=== PATIENT | female | born 1975 | race Two or more races ===

== ENCOUNTER 2025-01-01 04:00 | Emergency (ER) | payer MEDICAID, OTHER ==
[~2025-01-01] VITALS: Ht 154.9 cm; Wt 83.0 kg
[2025-01-01 04:33] LABS: Basophils # (auto) 0.1 10 ^3/uL (0-0.2); Basophils % (auto) 1.3 % (0.0-2.0); Eosinophils # (auto) 0.2 10 ^3/uL (0-0.8); Eosinophils % (auto) 2.9 % (0.0-7.0); Hematocrit 42.5 % (36.0-46.0); Hemoglobin 14.7 g/dL (12.2-16.2); Lymphocytes # (auto) 2.7 10 ^3/uL (0.4-5.4); Lymphocytes % (auto) 31.9 % (10.0-50.0); Mean Corpuscular Hemoglobin 30.8 pg (28.0-32.0); Mean Corpuscular Hgb Conc. 34.6 g/dL (32.0-36.0); Mean Corpuscular Volume 89.1 fL (80.0-100.0); Monocytes # (auto) 0.7 10 ^3/uL (0-1.3); Neutrophils # (auto) 4.7 10 ^3/uL (1.6-8.6); Neutrophils % (auto) 55.9 % (37.0-80.0); Nucleated Red Blood Cells % 0.1 %; Platelet Count (auto) 235 10^3/uL (140-450); Red Blood Cells 4.77 10^6/uL (4.0-5.20); Red Cell Distribution Width 14.9 % (11.8-14.3); White Blood Cell 8.3 10^3/uL (4.4-10.8)
[2025-01-01 04:42] LABS: Chloride 106 mmol/L (98-107); Potassium 3.8 mmol/L (3.5-5.1); Sodium 141 mmol/L (136-145)
[2025-01-01 04:43] LABS: Anion Gap 11 (5-15); Carbon Dioxide 24 mmol/L (20-31)
[2025-01-01 04:44] LABS: Calcium 9.2 mg/dL (8.7-10.4)
[2025-01-01 04:48] LABS: BUN/Creatinine Ratio 17.5 (10.0-20.0); Blood Urea Nitrogen 11 mg/dL (9-23)
--- NOTE | 2025-01-01 04:55 | DVH ---
CHEST RADIOGRAPH Indication: cp Technique: Single frontal view of the chest was obtained COMPARISON: None FINDINGS: Lines and Tubes: None Lungs: Mild increased interstitial prominence Pleura: No effusion. No pneumothorax. Cardiomediastinal contours: Unremarkable Bones: Unremarkable IMPRESSION: Pulmonary vascular congestion or viral pneumonia.
[2025-01-01 05:03] LABS: Urine Bacteria None Seen /hpf (None Seen)
[2025-01-01 05:04] LABS: Glucose 110 mg/dL (74-106)
[2025-01-01] MEDS ORDERED: HYDR50TA32 PO (05:09)
--- NOTE | 2025-01-01 05:10 | ED.PDOC ---
History of Present Illness HPI Comments 49-year-old female with no significant past medical history brought in by family complaining of chest tightness that woke her up at around 2:00 a.m., associated with numbness in her left upper extremity and nausea. Patient states the pain has now resolved. She denies any vomiting, diaphoresis, edema or shortness of breath. Patient states she has had similar symptoms in the past and had a cardiac workup in August of 2024 including a treadmill test and echocardiogram. She was told the results were normal. Chief Complaint: Chest Pain Time Seen by MD: 04:09 Allergies: Coded Allergies: NO KNOWN ALLERGIES (Unverified , 01/01/25) Home Meds Active Scripts Hydroxyzine HCl (Hydroxyzine Hydrochloride) 50 Mg Tab, 50 MG PO Q8HP PRN, #30 TAB Prov:VERNON MEREDITH MD 01/01/25 Mode of Arrival: Ambulatory Past Medical History PAST MEDICAL HISTORY: Denies Surgical History: Hysterectomy SAP BPC DEVELOPER History: No Pertinent SAP BPC DEVELOPER History Family History Family History: Reviewed,noncontributory to illness Social History Smoker: Non-Smoker Alcohol: Denies ETOH Use Drugs: Denies Drug Use Lives In: Home All Other Systems: Reviewed and Negative (Comprehensive systems review obtained and negative except for what is stated in the HPI.) Physical Exam General Appearance: No Apparent Distress, Obese HEENT: Other (Pupils and face symmetric. Moist mucous membranes.) Neck: Full Range of Motion, Normal Inspection Respiratory: Lungs Clear, No Accessory Muscle Use, No Respiratory Distress, Normal Breath Sounds Cardiovascular: No Edema, No JVD, Regular Rate/Rhythm Breast Exam: Deferred Gastrointestinal: Non Tender, Soft Genitalia: Deferred Pelvic: Deferred Rectal: Deferred Extremities: Normal inspection, Normal range of motion, Non-tender, No pedal edema Neurologic: Alert (Oriented x4), Normal Affect, Other (Ambulatory. Appears anxious. Thirty) Cerebellar Function: NOT DONE Reflexes: NOT DONE Skin: Dry, Normal Color, Warm Lymphatic: NOT DONE Was a procedure done? Was a procedure done?: No EKG EKG : Comments Sinus rhythm, rate 74, normal intervals, normal axis, normal QRS, no ST/T c hanges. Differential Dx Considerations may include: Anxiety, chest wall pain, neuropathic pain, ACS, NV, among others X-Ray, Labs, Meds, VS Vital Signs Date Time Temp Pulse Resp B/P (MAP) Pulse Ox O2 Delivery O2 Flow Rate FiO2 01/01/25 05:31 98.3 76 18 131/72 (91) 98 98.3 01/01/25 05:05 77 01/01/25 04:10 98.3 77 16 152/95 (114) 97 98.3 01/01/25 04:05 74 Lab Test 01/01/25 05:08 01/01/25 04:10 Range/Units Troponin I High Sensitivity Pending < 3 L </=34 ng/L White Blood Count 8.3 4.4-10.8 10^3/uL Red Blood Count 4.77 4.0-5.20 10^6/uL Hemoglobin 14.7 12.2-16.2 g/dL Hematocrit 42.5 36.0-46.0 % Mean Corpuscular Volume 89.1 80.0-100.0 fL Mean Corpuscular Hemoglobin 30.8 28.0-32.0 pg Mean Corpuscular Hemoglobin Concent 34.6 32.0-36.0 g/dL Red Cell Distribution Width 14.9 H 11.8-14.3 % Platelet Count 235 140-450 10^3/uL Mean Platelet Volume 7.1 6.9-10.8 fL Neutrophils (%) (Auto) 55.9 37.0-80.0 % Lymphocytes (%) (Auto) 31.9 10.0-50.0 % Monocytes (%) (Auto) 8.0 0.0-12.0 % Eosinophils (%) (Auto) 2.9 0.0-7.0 % Basophils (%) (Auto) 1.3 0.0-2.0 % Neutrophils # (Auto) 4.7 1.6-8.6 10 ^3/uL Lymphocytes # (Auto) 2.7 0.4-5.4 10 ^3/uL Monocytes # (Auto) 0.7 0-1.3 10 ^3/uL Eosinophils # (Auto) 0.2 0-0.8 10 ^3/uL Basophils # (Auto) 0.1 0-0.2 10 ^3/uL Nucleated Red Blood Cells 0.1 % Urine Color Light-yellow Yellow Urine Clarity Clear Clear Urine pH 5.5 5.0-9.0 Urine Specific [place] 1.022 1.001-1.035 Urine Protein Negative Negative Urine Ketones Negative Negative Urine Blood 1+ H Negative /uL Urine Nitrite Negative Negative Urine Bilirubin Negative Negative Urine Urobilinogen Normal Negative mg/dL Urine Leukocyte Esterase Negative Negative /uL Urine RBC 2 0 - 4 /hpf Urine Microscopic WBC 3 0-5 /HPF Urine Squamous Epithelial Cells Few <5 /hpf Urine Bacteria None seen None Seen /hpf Urine Mucus Few None Seen Urine Glucose Normal Normal mg/dL Urine Test Negative Negative Sodium Level 141 136-145 mmol/L Potassium Level 3.8 3.5-5.1 mmol/L Chloride Level 106 98-107 mmol/L Carbon Dioxide Level 24 20-31 mmol/L Anion Gap 11 5-15 Blood Urea Nitrogen 11 9-23 mg/dL Creatinine 0.63 0.550-1.02 mg/dL Glomerular Filtration Rate Calc 107 >90 mL/min BUN/Creatinine Ratio 17.5 10.0-20.0 Serum Glucose 110 H 74-106 mg/dL Calcium Level 9.2 8.7-10.4 mg/dL B-Type Natriuretic Peptide 6.33 0-100 pg/mL Current Medications Medications (Trade) Dose Ordered Sig/Leah Route Start Time Stop Time Status Last Admin Lorazepam (Ativan Tablet) 0.5 mg ONCE ONCE PO 01/01/25 05:15 01/01/25 05:16 DC 01/01/25 05:35 PROCEDURE(s): CXRP - CHEST PORTABLE REASON: cp ORDER NUMBER(s): [id number], ACCESSION NUMBER(s): [id number] CHEST RADIOGRAPH Indication: cp Technique: Single frontal view of the chest was obtained COMPARISON: None FINDINGS: Lines and Tubes: None Lungs: Mild increased interstitial prominence Pleura: No effusion. No pneumothorax. Cardiomediastinal contours: Unremarkable Bones: Unremarkable IMPRESSION: Pulmonary vascular congestion or viral pneumonia. X-Ray, Labs, Meds, VS Comment 49-year-old female with no significant past medical history and recent negative cardiac workup in August of 2024 complaining of chest pain that resolved prior to arrival Vitals remarkable for BP 152/95 Exam remarkable for anxious appearance Rhythm strip independently interpreted by me: Sinus rhythm, rate 74, no ectopy. Chest x-ray IMPRESSION: Pulmonary vascular congestion or viral pneumonia. CBC, basic metabolic panel, BNP and troponin unremarkable Patient treated with the following in the ED: Ativan 0.5 mg p.o. On re-evaluation, patient states she stress pain-free. Vitals were stable. Hospitalization was considered, however patient was chest pain-free on re-evalua tion and ED cardiac workup was unremarkable. Patient had a recent cardiology evaluation which was negative. Denies any fever, cough or infectious type symptoms. BNP is unremarkable. Radiologist read of chest x-ray is inconsistent with the patient's clinical presentation. Doubt pneumonia or vascular congestion. Patient appears stable for discharge with close outpatient follow- up with her primary physician. Rx hydroxyzine Time of 1ST Reevaluation: 06:00 Reevaluation 1ST: Improved Patient Education/Counseling: Diagnosis, Treatment, Need For Follow Up Family Education/Counseling: No Family Present SEPSIS Sepsis Screen Date sepsis recognized/suspect: Jan 01, 2025 Time Sepsis recognized/suspect: 409 Recent Procedure: No On Antibiotic Therapy: No Respiratory Rate >20: No Heart Rate >90: No Temp<36 C (96.8 F) or >38.3 C: No SBP <90 or MAP <65 mmHG: No New Acute Mental Status Change: No Is the patient on CPAP, BIPAP,: No Physician Orders Electrocardigram (01/01/25 04:03) Electrocardigram (01/01/25 05:03) Electrocardigram (01/01/25 07:03) Troponin-I Hs (01/01/25 05:03) Troponin-I Hs (01/01/25 07:03) Chest Portable (01/01/25 04:09) Vital Signs Date Time Temp Pulse Resp B/P (MAP) Pulse Ox O2 Delivery O2 Flow Rate FiO2 01/01/25 05:31 98.3 76 18 131/72 (91) 98 98.3 01/01/25 05:05 77 01/01/25 04:10 98.3 77 16 152/95 (114) 97 98.3 01/01/25 04:05 74 Laboratory Tests Test 01/01/25 04:10 White Blood Count 8.3 10^3/uL (4.4-10.8) Medications Medications Dose Ordered Sig/Leah Route Start Time Stop Time Status Last Admin Dose Admin Lorazepam 0.5 mg ONCE ONCE PO 01/01/25 05:15 01/01/25 05:16 DC 01/01/25 05:35 Departure 1 Departure Time of Disposition: 06:00 Impression: Primary Impression: Chest pain with low risk for cardiac etiology Additional Impression: Anxiety Disposition: 01 HOME / SELF CARE / HOMELESS Condition: Stable Additional Instructions: Your blood tests, including screening test for heart attack and heart failure, were unremarkable. I have prescribed medication for anxiety. Follow-up with your primary doctor in 1-2 days. e-Prescriptions Hydroxyzine HCl (Hydroxyzine Hydrochloride) 50 Mg Tab 50 MG PO Q8HP PRN, #30 TAB Prov: VERNON MEREDITH MD 01/01/25 Discharged With: Spouse Critical Care Note Critical Care Time?: No Stability Stability form required: No Heart Score Heart Score: Heart Score Response (Comments) Value History Slightly Suspicious 0 EKG Normal 0 Age 45-64 1 Risk Factors No known risk factors 0 Troponin Normal limit 0 Total 1 VERNON MEREDITH MD Jan 01, 2025 05:10
[2025-01-01 05:31] VITALS: BP 131/72; PULSE 76; RESP 18; TEMP 98.3; O2SAT 98
[2025-01-01] MEDS: LORazepam 0.5 MG TAB PO ONE (05:35)
[2025-01-01 05:40] LABS: Urine Blood 1+ /uL (Negative); Urine Clarity Clear (Clear); Urine Color Light-Yellow (Yellow); Urine Mucus FEW (None Seen); Urine Protein, UAD Negative (Negative); Urine Specific Gravity 1.022 (1.001-1.035); Urine Squamous Epithelial Cell FEW /hpf (<5); Urine Urobilinogen Normal (Negative); Urine WBC 3 /HPF (0-5); Urine pH 5.5 (5.0-9.0)
--- NOTE | 2025-01-03 08:52 | ECG ---
[facility] Test Date: 2025-01-01 Test Time: 05:10:19 Pat Name: JP CHACON Department: ED Room: Gender: F Regional Marketing Manager: : 1975 Requested By: EMERGENCY EMERGENCY Order Number: [id number] Reading MD: Johnnie Pedraza Measurements Intervals [place] Rate: 77 P: 32 VA: 157 QRS: 42 QRSD: 91 T: 44 QT: 391 QTc: 443 Interpretive Statements Sinus rhythm Electronically Signed On 01-05-2025 9:40:54 PDT by Johnnie Pedraza Please click the below link to view image of tracing.
== END 2025-01-01 05:55 | disposition home or self-care (01) ==
LOC: ER 04:00
DX: R07.89 Other chest pain (principal); F41.9 Anxiety disorder, unspecified; Z90.710 Acquired absence of both cervix and uterus; Z79.899 Other long term (current) drug therapy
CPT/HCPCS: 36415; 71045; 80048; 81001; 81025; 83880; 84484; 85025; 93005

== ENCOUNTER 2025-03-02 12:59 | Emergency (ER) | payer MEDICAID ==
[~2025-03-02] VITALS: Ht 154.9 cm; Wt 84.9 kg
[~2025-03-02 12:59] MED LIST: HYDR50TA32 PO
--- NOTE | 2025-03-02 13:28 | ED.PDOC ---
History of Present Illness(SKN HPI Comments A 49 YEAR OLD FEMALE PRESENTS TO THE ED WITH COMPLAINT OF BEE STING OF RIGHT INNER THIGH. PATIENT STATES SHE WAS STUNG BY A BEE ON HER RIGHT INNER THIGH YESTERDAY AND SHE IS NOW EXPERIENCING REDNESS, SWELLING, AND PAIN TO THE AFFECTED AREA A RESULT. PATIENT DENIES FEVER, CHILLS, SHORTNESS OF BREATH, CHEST PAIN, ABDOMINAL PAIN, NAUSEA, VOMITING, HEADACHE, OR OTHER COMPLAINTS. NO OTHER SYMPTOMS OR MODIFYING FACTORS AT THIS TIME. PATIENT IS ALERT, ORIENTED X 4, AND HAS STEADY GAIT. Chief Complaint: Insect Bite Time Seen by MD: 13:03 History of Present Illness: Nurses Notes, Medications, Allergies Allergies: Coded Allergies: NO KNOWN ALLERGIES (Unverified , 01/01/25) Home Meds Active Scripts Hydroxyzine HCl (Hydroxyzine Hydrochloride) 50 Mg Tab, 50 MG PO Q8HP PRN, #30 TAB Prov:VERNON MEREDITH MD 01/01/25 Information Source: Patient Mode of Arrival: Ambulatory Severity: Moderate Timing: Days Duration: Since onset, Days Prehospital treatment: None Location: Extremities (RIGHT INNER THIGH ) Mechanism: Insect Occurence: Outdoors Object: None Condition of Object: None Retained Foreign Body: No Wound Type: Other (BEE STING) Immunization Status of Animal: NA Tetanus: Unknown History of: None Associated Signs and Symptoms: Redness, Swelling, Pain Past Medical History PAST MEDICAL HISTORY: Denies Surgical History: Hysterectomy TESTING LEAD History: No Pertinent TESTING LEAD History Family History Family History: Reviewed,noncontributory to illness Social History Smoker: Non-Smoker Alcohol: Denies ETOH Use Drugs: Denies Drug Use Lives In: Home Constitutional: denies: chills, diaphoresis, fatigue, fever, malaise, sweats, weakness, others EENTM: denies: blurred vision, double vision, ear bleeding, ear discharge, ear drainage, ear pain, ear ringing, eye pain, eye redness, hearing loss, mouth pain, mouth swelling, nasal discharge, nose bleeding, nose congestion, nose pain, photophobia, tearing, throat pain, throat swelling, voice changes, others Respiratory: denies: cough, hemoptysis, orthopnea, SOB at rest, shortness of breath, SOB with excertion, stridor, wheezing, others Cardiovascular: denies: chest pain, dizzy spells, diaphoresis, Dyspnea on exertion, edema, irregular heart beat, left arm pain, lightheadedness, palpitations, PND, syncope, others Gastrointestinal: denies: abdomen distended, abdominal pain, blood streaked bowels, constipated, diarrhea, dysphagia, difficulty swallowing, hematemesis, melena, nausea, poor appetite, poor fluid intake, rectal bleeding, rectal pain, vomiting, others Genitourinary: denies: abnormal vagina bleeding, burning, dyspareunia, dysuria, flank pain, frequency, hematuria, incontinence, pain, , vagina d ischarge, urgency, others Neurological: denies: dizziness, fainting, headache, left sided numbness, left sided weakness, numbness, paresthesia, pre-existing deficit, right sided numbness, right sided weakness, seizure, speech problems, tingling, tremors, weakness, others Musculoskeletal: denies: back pain, gout, joint pain, joint swelling, muscle pain, muscle stiffness, neck pain, others Integumetry: reports: rash, others (BEE STING OF RIGHT INNER THIGH); denies: bruises, change in color, change in hair/nails, dryness, laceration, lesions, lumps, wounds Allergic/Immunocompromised: reports: Hives, Itching; denies: Difficulty Healing, Frequent Infections, others Hematologic/Lymphatic: denies: anemia, blood clots, easy bleeding, easy bruising, swollen glands, others Endocrine: denies: excessive hunger, excessive sweating, excessive thirst, excessive urination, flushing, intolerance to cold, intolerance to heat, unexplained weight gain, unexplained weight loss, others Psychiatric: denies: anxiety, bipolar disorder, depression, hopeless, panic disorder, schizophrenia, sleepless, suicidal, others All Other Systems: Reviewed and Negative Physical Exam General Appearance: Obese HEENT: Normal ENT Inspection, PERRL/EOMI, Pharynx Normal, TMs Normal Neck: Full Range of Motion, Non-Tender, Normal, Normal Inspection Respiratory: Chest Non-Tender, Lungs Clear, No Accessory Muscle Use, No Respiratory Distress, Normal Breath Sounds Cardiovascular: No Edema, No JVD, No Murmur, No Gallop, Normal Peripheral Pulses, Regular Rate/Rhythm Breast Exam: Deferred Gastrointestinal: No Organomegaly, Non Tender, No Pulsatile Mass, Normal Bowel Sounds, Soft Genitalia: Deferred Pelvic: Deferred Rectal: Deferred Extremities: No calf tenderness, Normal capillary refill, Normal inspection, Normal range of motion, No pedal edema, Tender (REDNESS AND MILD SWELLING ON RIGHT INNER THIGH, +BEE STING CARYL, NO OPEN WOUND SEEN. 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 ), Warm Peripheral Pulses: 2+ carotid (R), 2+ carotid (L), 2+ dorsalis pedis (R), 2+ dorsalis pedis (L) Lymphatic: No Adenopathy Was a procedure done? Was a procedure done?: No Differential Diagnosis (INTG) Differential Diagnosis: Abrasion, Cellulitis, Contusion, Insect Envenomation, Puncture Wound Differential Diagnosis: Contact Dermatitis, Impetigo, Intertrigo, N/A Differential Diagnosis: N/A Abscess: N/A Differential Diagnosis: N/A X-Ray, Labs, Meds, VS Vital Signs Date Time Temp Pulse Resp B/P (MAP) Pulse Ox O2 Delivery O2 Flow Rate FiO2 03/02/25 13:01 98.1 74 16 137/96 95 98.1 Current Medications Medications (Trade) Dose Ordered Sig/Leah Route Start Time Stop Time Status Last Admin Methylprednisolone Sodium Succinate (Solu Medrol) 125 mg ONCE ONCE IM 03/02/25 13:30 03/02/25 13:31 DC 03/02/25 13:49 Ceftriaxone Sodium (Rocephin) 1,000 mg ONCE ONCE IM 03/02/25 13:30 03/02/25 13:31 DC 03/02/25 13:48 X-Ray, Labs, Meds, VS Comment EXTERNAL MEDICAL RECORDS REVIEWED: [NONE] INDEPENDENT HISTORIANS: [NONE] SOCIAL DETERMINANTS OF HEALTH: [NONE] LABS ORDERED: NONE REVIEWED AND INTERPRETED RESULTS: NONE IMAGING ORDERED: NONE TREATMENTS ORDERED: SOLU-MEDROL 125 MG IM, ROCEPHIN 1 G IM PROCEDURES PERFORMED: NONE CRITICAL CARE TIME: NONE I HAVE DISCUSSED THE PATIENT WITH THE ATTENDING PHYSICIAN DR. BYRD AND HE AGREES WITH THE PATIENT'S PLAN OF CARE AND DISPOSITION. BASED ON HISTORY OF PRESENT ILLNESS, AND PHYSICAL EXAM, PATIENT WILL BE DISCHARGED HOME. DISCUSSED PLAN FOR DISCHARGE HOME WITH RX [PREDNISONE, KEFLEX, AND TRIAMCINOLONE CREAM]. MEDICATION WARNINGS GIVEN. SHARED DECISION MAKING: PATIENT INSTRUCTED TO FOLLOW UP WITH PRIMARY CARE PROVIDER IN 1-2 DAYS FOR RE-EVALUATION OF SYMPTOMS. PATIENT VERBALIZES UNDERSTANDING TO RETURN TO ED FOR NEW OR WORSENING SYMPTOMS OR IF FOLLOW UP WITH PCP CANNOT BE OBTAINED. PATIENT FEELS COMFORTABLE GOING HOME AT THIS TIME. ALL QUESTIONS ADDRESSED AT TIME OF DISCHARGE. Time of 1ST Reevaluation: 14:25 Reevaluation 1ST: Improved Patient Education/Counseling: Diagnosis, Treatment, Need For Follow Up Family Education/Counseling: Diagnosis, Treatment, Need For Follow Up Medical Screening: No EMC Exist At This Time SEPSIS Sepsis Screen Date sepsis recognized/suspect: Mar 02, 2025 Time Sepsis recognized/suspect: 1302 Recent Procedure: No On Antibiotic Therapy: No Respiratory Rate >20: No Heart Rate >90: No Temp<36 C (96.8 F) or >38.3 C: No SBP <90 or MAP <65 mmHG: No New Acute Mental Status Change: No Is the patient on CPAP, BIPAP,: No Vital Signs Date Time Temp Pulse Resp B/P (MAP) Pulse Ox O2 Delivery O2 Flow Rate FiO2 03/02/25 13:01 98.1 74 16 137/96 95 98.1 Medications Medications Dose Ordered Sig/Leah Route Start Time Stop Time Status Last Admin Dose Admin Ceftriaxone Sodium 1,000 mg ONCE ONCE IM 03/02/25 13:30 03/02/25 13:31 DC 03/02/25 13:48 Methylprednisolone Sodium Succinate 125 mg ONCE ONCE IM 03/02/25 13:30 03/02/25 13:31 DC 03/02/25 13:49 Departure 1 Departure Time of Disposition: : Impression: Primary Impression: Bee sting Qualified Codes: T63.441A - Toxic effect of venom of bees, accidental (unintentional), initial encounter Disposition: HOME / SELF CARE / HOMELESS Condition: Stable Additional Instructions: FOLLOW-UP WITH PCP IN 1 TO 2 DAYS. TAKE MEDICATIONS PRESCRIBED. RETURN TO ED FOR ANY NEW OR WORSENING SYMPTOMS. e-Prescriptions Prednisone (Prednisone) 20 Mg Tab 60 MG PO DAILY, #21 TAB Prov: LIAM FRIED 03/02/25 Cephalexin Monohydrate (Cephalexin) 500 Mg Cap 1 CAP PO QID, #40 CAP Prov: LIAM FRIED 03/02/25 Triamcinolone Acetonide (Triamcinolone Acetonide) 0.025 % Cre 1 APPLIC TOP BID, #30 GRAMS Prov: LIAM FRIED 03/02/25 Discharged With: Self Critical Care Note Critical Care Time?: No Stability Stability form required: No I personally scribed for LIAM FRIED ([email or web address]) on 03/02/25 at 13:28. Electronically submitted by Prem Arriaga ([email or web address]). LIAM FRIED Mar 02, 2025 13:28
[2025-03-02] MEDS: cefTRIAXone SOD 1,000 MG VL IM ONE (13:48)
[2025-03-02] MEDS: methylPREDNISolone SOD SUCC 125 MG/2 ML VL IM ONE (13:49)
[2025-03-02] MEDS ORDERED: PRED20TA2 PO (14:27)
[2025-03-02] MEDS ORDERED: CEPH500C PO (14:27)
[2025-03-02] MEDS ORDERED: TRIA0.02 TOP (14:27)
[2025-03-02 14:38] VITALS: BP 137/96; PULSE 74; RESP 16; TEMP 98.1; O2SAT 95
== END 2025-03-02 14:40 | disposition home or self-care (01) ==
LOC: ER 12:59
DX: T63.441A Toxic effect of venom of bees, accidental (unintentional), initial encounter (principal); Z90.710 Acquired absence of both cervix and uterus; Y92.89 Other specified places as the place of occurrence of the external cause
CPT/HCPCS: 96372; 99284; J0696; J2919

== ENCOUNTER 2025-03-31 10:08 | Emergency (ER) | payer MEDICAID ==
[~2025-03-31] VITALS: Ht 154.9 cm; Wt 84.5 kg
[~2025-03-31 10:08] MED LIST changes: +CEPH500C PO; +PRED20TA2 PO; +TRIA0.02 TOP
--- NOTE | 2025-03-31 10:53 | ED.PDOC ---
HPI Comments HPI: rPem 49 y.o female presents to the ED for a chief complaint of chest pain. Patient remy vyas waking up today feeling unwell, states she went to work and around 0900, became lightheaded followed by nausea and vomiting. Patient shortly after vomiting developed chest pain radiating to her left shoulder and arm that is constant and has no alleviating or precipitating factors. She mentions being seen one month ago for same complaint/symptoms, had a cardiac workup done at the ED then and was told all test analysis came back normal. Per [facility] medical records, patient was seen around December 2024 for chest pain then as well, had cardiac workup in August of 2024 including a treadmill test and echocardiogram. She was told the results were normal. She denies any SOB, fever, chills, abdominal pain or leg swelling. She also denies family history of cardiac issues. Initial Vitals BP: 146/87 HR: 82 RR: 18 O2: 96% RA Temp: 97.6F Past Medical History: Denies Past Surgical History: hysterectomy. Social History: Denies ETOH, smoking, and drug use. Allergies: Denies COHEN: HPI: Poor Historian. No family history of coronary disease, no tobacco abuse, no drug abuse, no past medical problems. REVIEW OF SYSTEMS: All symptoms have resolved prior to my evaluation. CONSTITUTIONAL: Denies acute: fever, diaphoresis, chills, generalized weakness. HEAD: Denies acute: headache, photophobia Eyes: Denies acute: Double vision, vision loss, eye pain, eye discharge. EARS: Denies acute: tinnitus, hearing loss, ear discharge, ear pain, THROAT: Denies acute: sore throat, swelling, difficulty swallowing , pain with swallowing, change in voice. NECK: Denies acute: neck pain, neck swelling, stiff neck. HEART: Denies acute : palpitations, LUNGS: Denies acute: SOB, wheezing, cough, hemoptysis ABDOMEN: Denies acute: abdominal pain, Nausea, Vomiting, diarrhea, melena , hematemesis, hematochezia SKIN: Denies acute: rash, redness, lesions, itchiness. EXTREMITIES: Denies acute: calf pain, numbness, tingling, weakness, denies pain in extremity. Denies acute: Low back pain. Neuro: Denies acute: focal neurological deficit, motor or sensory focal neurological deficit, tremors, seizure like activity, confusion, dizziness, change in mental status, loss of bowel or bladder function, cauda equina like symptoms. : Denies acute: dysuria, hematuria, flank pain, increase in urinary frequency. PSYCH: Denies acute: hallucination, suicidal ideation, homicidal ideation. FEMALE: Denies acute: abnormal vaginal bleeding, foul odor, unusual discharge. PHYSICAL EXAM: General: ----no----acute distress, awake and alert. Head: normocephalic, atraumatic. Neck: supple, trachea is midline, no swelling. Throat: Normal phonation. Eyes:, no erythema, no purulent discharge, no proptosis, no icterus. Heart: regular rate, regular rhythm, no significant murmur appreciated. Lungs: no apparent respiratory distress, Able to speak in full sentences. No wheezing, no rhonchi, no crackles. No stridors Clear to auscultation bilaterally. Abdomen: non tender to palpation, non distended, soft, no guarding, no rebound, + bowel sounds. Neuro: Awake, Alert, oriented to name, self, situation, follows commands GCS=15. Speech is normal. Skin: no petechia, no purpura, no cyanosis, non-pale, not jaundice. Lower extremities: --no - Pitting edema no deformity, no focal swelling, no calf TTP. Makes eye contact. moves all four extremities. Face: no apparent facial droop. Ambulating in the ED independently. ED COURSE: DISCLAIMER: This medical document was created using an electronic medical record system with voice recognition software and computerized dictation system. Although this document has been carefully reviewed, there might still be some phonetic and typographical errors. Occasional wrong-word or "sound-alike" substitutions may have occurred due to the inherent limitations of voice recognition software. These areas are purely typographical due to imperfections of the software programs and do not reflect any compromise in the patient's medical care. Please read the chart carefully and recognize, using context, where these substitutions have occurred. Chief Complaint: Chest Pain Time Seen by MD: 10:43 Reviewed Notes: Allergies Allergies: Coded Allergies: NO KNOWN ALLERGIES (Unverified , 01/01/25) Home Meds Active Scripts Prednisone (Prednisone) 20 Mg Tab, 60 MG PO DAILY, #21 TAB Prov:LIAM FRIED 03/02/25 Cephalexin Monohydrate (Cephalexin) 500 Mg Cap, 1 CAP PO QID, #40 CAP Prov:LIAM FRIED 03/02/25 Triamcinolone Acetonide (Triamcinolone Acetonide) 0.025 % Cre, 1 APPLIC TOP BID, #30 GRAMS Prov:LIAM FRIED 03/02/25 Hydroxyzine HCl (Hydroxyzine Hydrochloride) 50 Mg Tab, 50 MG PO Q8HP PRN, #30 TAB Prov:VERNON MEREDITH MD 01/01/25 Information Source: Patient Mode of Arrival: Ambulatory Severity: Moderate Timing: Hours Associated Signs and Symptoms: N/V Past Medical History PAST MEDICAL HISTORY: Denies Surgical History: Hysterectomy ASSOCIATE History: No Pertinent ASSOCIATE History Family History Family History: Reviewed,noncontributory to illness Social History Smoker: Non-Smoker Alcohol: Denies ETOH Use Drugs: Denies Drug Use Lives In: Home Was a procedure done? Was a procedure done?: No CP Differential Dx Differential Diagnosis: N/A Differential Diagnosis: Angina, Chest Wall Pain, Cholelithiasis, Costochondritis, Pericarditis X-Ray, Labs, Meds, VS Vital Signs Date Time Temp Pulse Resp B/P (MAP) Pulse Ox O2 Delivery O2 Flow Rate FiO2 03/31/25 13:48 98.2 69 18 144/81 (102) 97 98.2 03/31/25 13:16 61 03/31/25 11:04 68 03/31/25 10:16 74 03/31/25 10:10 97.6 82 18 146/87 96 97.6 Lab Test 03/31/25 13:43 03/31/25 11:48 03/31/25 10:56 Range/Units Troponin I High Sensitivity < 3 L < 3 L < 3 L </=34 ng/L White Blood Count 6.5 4.4-10.8 10^3/uL Red Blood Count 4.62 4.0-5.20 10^6/uL Hemoglobin 14.5 12.2-16.2 g/dL Hematocrit 41.6 36.0-46.0 % Mean Corpuscular Volume 89.9 80.0-100.0 fL Mean Corpuscular Hemoglobin 31.3 28.0-32.0 pg Mean Corpuscular Hemoglobin Concent 34.8 32.0-36.0 g/dL Red Cell Distribution Width 13.8 11.8-14.3 % Platelet Count 222 140-450 10^3/uL Mean Platelet Volume 6.9 6.9-10.8 fL Neutrophils (%) (Auto) 62.5 37.0-80.0 % Lymphocytes (%) (Auto) 23.8 10.0-50.0 % Monocytes (%) (Auto) 7.9 0.0-12.0 % Eosinophils (%) (Auto) 5.0 0.0-7.0 % Basophils (%) (Auto) 0.8 0.0-2.0 % Neutrophils # (Auto) 4.0 1.6-8.6 10 ^3/uL Lymphocytes # (Auto) 1.5 0.4-5.4 10 ^3/uL Monocytes # (Auto) 0.5 0-1.3 10 ^3/uL Eosinophils # (Auto) 0.3 0-0.8 10 ^3/uL Basophils # (Auto) 0.1 0-0.2 10 ^3/uL Nucleated Red Blood Cells 0.0 % Sodium Level 142 136-145 mmol/L Potassium Level 3.8 3.5-5.1 mmol/L Chloride Level 105 98-107 mmol/L Carbon Dioxide Level 27 20-31 mmol/L Anion Gap 10 5-15 Blood Urea Nitrogen 11 9-23 mg/dL Creatinine 0.58 0.550-1.02 mg/dL Glomerular Filtration Rate Calc 110 >90 mL/min BUN/Creatinine Ratio 19.0 10.0-20.0 Serum Glucose 95 74-106 mg/dL Lactic Acid Level 1.0 0.4-2.0 mmol/L Calcium Level 9.4 8.7-10.4 mg/dL Total Bilirubin 1.0 0.2-1.0 mg/dL Aspartate Amino Transferase (AST) 253 H 13-40 U/L Alanine Aminotransferase (ALT) 174 H 7-40 U/L Alkaline Phosphatase 84 46-116 U/L Total Protein 7.1 5.7-8.2 g/dL Albumin 4.3 3.2-4.8 g/dL Lipase 35 12-53 U/L [facility] [id number] [place] [id number] Ph: [phone] DIAGNOSTIC IMAGING Diagnostic Imaging Report : [id number] Signed PATIENT: RENZO LEET: [id number] UNIT: [id number] : 1975 LOC: ER ROOM / BED: / AGE / SEX: 49 / F ADM STATUS: REG ER SERVICE 1031 ORDERING PHYSICIAN: TAINA KIRK DO PROCEDURE(s): CXRP - CHEST PORTABLE REASON: cp ORDER NUMBER(s): [id number], ACCESSION NUMBER(s): [id number] CHEST RADIOGRAPH REASON FOR EXAM: Chest pain COMPARISON: XY CHEST PORTABLE on DOS: 01/01/25 TECHNIQUE: One view of the chest is provided FINDINGS: The cardiomediastinal silhouette is within normal limits for technique. There is no focal airspace disease. There is no significant pleural effusion. No acute bony abnormality is identified. IMPRESSION: No radiographic evidence of acute cardiopulmonary process. ATED BY: KEVON CARRERA MD DICTATED DATE/TIME: 03/31/25 1110 SIGNED BY: KEVON CARRERA MD SIGNED DATE/TIME: 03/31/25 1110 CC: Time of 1ST Reevaluation: 10:48 Reevaluation 1ST: Unchanged Patient Education/Counseling: Diagnosis, Treatment Family Education/Counseling: No Family Present Departure 1 Departure Time of Disposition: 15:14 Impression: Primary Impression: Chest pain Additional Impression: Elevated LFTs Disposition: 01 HOME / SELF CARE / HOMELESS Condition: Stable Additional Instructions: Additional instructions: Please read all instructions provided in this packet carefully. You MUST follow-up with your primary care/family doctor in 1 to 2 days. If you are unable to see your primary care/family doctor, please return to our emergency room for re-assessment and re-evaluation in 1 to 2 days. Return to the emergency room here in our facility or to the nearest ER [facility] if your symptoms change or worsen. CONSULTATIONS: you MUST Follow-up for consultation as soon as possible with: -cardiology in 1-2 days. Please call for appointment You MUST call the consultants office yourself to make an appointment. You may need to arrange that through your insurance and/or your primary/family doctor. If you are unable to see the net developer consultant in 1 to 2 days, you must return to our emergency room (or any other ER of your choice) for re-assessment and re- evaluation. Adequate fluid hydration. Although you have been discharged from the Emergency Department, this does not mean that you have a "clean bill of health". No definitive diagnosis for your symptoms has been made today. It is possible that you are in the process of developing a serious illness. This is why you must return to the ED without fail if any new or worsening symptoms develop. Below is a copy of your radiological report for follow up: [address] [address] Ph: [phone] DIAGNOSTIC IMAGING Diagnostic Imaging Report : [id number] Signed PATIENT: JP LEE ACCT: [id number] UNIT: [id number] : 1975 LOC: ER ROOM / BED: / AGE / SEX: 49 / F ADM STATUS: REG ER SERVICE 1031 ORDERING PHYSICIAN: TAINA KIRK DO PROCEDURE(s): CXRP - CHEST PORTABLE REASON: cp ORDER NUMBER(s): [id number], ACCESSION NUMBER(s): [id number] CHEST RADIOGRAPH REASON FOR EXAM: Chest pain COMPARISON: XY CHEST PORTABLE on DOS: 01/01/25 TECHNIQUE: One view of the chest is provided FINDINGS: The cardiomediastinal silhouette is within normal limits for technique. There is no focal airspace disease. There is no significant pleural effusion. No acute bony abnormality is identified. IMPRESSION: No radiographic evidence of acute cardiopulmonary process. ATED BY: KEVON CARRERA MD DICTATED DATE/TIME: 03/31/25 1110 SIGNED BY: KEVON CARRERA MD SIGNED DATE/TIME: 03/31/25 1110 CC: Discharged With: Self Critical Care Note Critical Care Time?: No Heart Score Heart Score: Heart Score Response (Comments) Value History Slightly Suspicious 0 EKG Normal 0 Age 45-64 1 Risk Factors No known risk factors 0 Troponin Normal limit 0 Total 1 I personally scribed for TAINA KIRK DO ([email or web address]) on 03/31/25 at 10:53. Electronically submitted by Christianne Art ([facility]). I personally scribed for TAINA KIRK DO ([facility]) on 03/31/25 at 11:20. Electronically submitted by Christianne Art ([facility]). I personally scribed for TAINA KIRK DO ([email or web address]) on 03/31/25 at 11:55. Electronically submitted by Meena Villafana ([email or web address]). I personally scribed for TAINA KIRK DO ([email or web address]) on 03/31/25 at 12:23. Electronically submitted by Meena Villafana ([email or web address]). I personally scribed for TAINA KIRK DO ([email or web address]) on 03/31/25 at 15:16. Electronically submitted by Christianne Art ([facility]). TAINA KIRK DO Mar 31, 2025 10:53
[2025-03-31 11:05] LABS: Hematocrit 41.6 % (36.0-46.0); Hemoglobin 14.5 g/dL (12.2-16.2); Mean Corpuscular Hemoglobin 31.3 pg (28.0-32.0); Mean Corpuscular Volume 89.9 fL (80.0-100.0); Nucleated Red Blood Cells % 0.0 %
--- NOTE | 2025-03-31 11:06 | ECG ---
[facility] Test Date: 2025-03-31 Test Time: 11:04:43 Pat Name: JP CHACON Department: Room: Gender: F Dining Services Manager: GEOVANNI : 1975 Requested By: TAINA KIRK Order Number: [id number] Reading MD: Measurements Intervals [place] Rate: 68 P: -8 CA: 177 QRS: 17 QRSD: 87 T: 53 QT: 401 QTc: 427 Interpretive Statements Sinus rhythm Please click the below link to view image of tracing.
--- NOTE | 2025-03-31 11:13 | DVH ---
CHEST RADIOGRAPH REASON FOR EXAM: Chest pain COMPARISON: XY CHEST PORTABLE on DOS: 01/01/25 TECHNIQUE: One view of the chest is provided FINDINGS: The cardiomediastinal silhouette is within normal limits for technique. There is no focal a irspace disease. There is no significant pleural effusion. No acute bony abnormality is identified. IMPRESSION: No radiographic evidence of acute cardiopulmonary process.
[2025-03-31 11:19] LABS: Albumin 4.3 g/dL (3.2-4.8); Alkaline Phosphatase 84 U/L (46-116); Anion Gap 10 (5-15); BUN/Creatinine Ratio 19.0 (10.0-20.0); Blood Urea Nitrogen 11 mg/dL (9-23); Calcium 9.4 mg/dL (8.7-10.4); Carbon Dioxide 27 mmol/L (20-31); Chloride 105 mmol/L (98-107); Glucose 95 mg/dL (74-106); Lipase 35 U/L (12-53); Potassium 3.8 mmol/L (3.5-5.1); Sodium 142 mmol/L (136-145); Total Protein 7.1 g/dL (5.7-8.2)
[2025-03-31 11:20] LABS: Alanine Aminotransferase 174 U/L (7-40); Bilirubin, Total 1.0 mg/dL (0.2-1.0)
[2025-03-31 13:48] VITALS: BP 144/81; PULSE 69; RESP 18; TEMP 98.2; O2SAT 97
--- NOTE | 2025-04-03 06:16 | ECG ---
[facility] Test Date: 2025-03-31 Test Time: 10:16:53 Pat Name: JP CHACON Department: Room: Gender: F Business Continuity Strategy Director: ODILON : 1975 Requested By: TAINA KIRK Order Number: [id number] Reading MD: Measurements Intervals [place] Rate: 74 P: -12 [place]: 168 QRS: 10 QRSD: 93 T: 50 QT: 393 QTc: 436 Interpretive Statements Sinus rhythm Please click the below link to view image of tracing.
--- NOTE | 2025-04-03 06:17 | ECG ---
[facility] Test Date: 2025-03-31 Test Time: 13:16:27 Pat Name: JP CHACON Department: Room: Gender: F Marketing Operations Assistant: KASSIDY : 1975 Requested By: TAINA KIRK Order Number: [id number] Reading MD: Measurements Intervals [place] Rate: 61 P: 14 SC: 176 QRS: 17 QRSD: 93 T: 58 QT: 416 QTc: 419 Interpretive Statements Sinus rhythm Please click the below link to view image of tracing.
== END 2025-03-31 15:59 | disposition home or self-care (01) ==
LOC: ER 10:08
DX: R07.89 Other chest pain (principal); R94.5 Abnormal results of liver function studies; Z90.710 Acquired absence of both cervix and uterus; Z79.899 Other long term (current) drug therapy
CPT/HCPCS: 36415; 71045; 80053; 83605; 83690; 84484; 85025; 93005